=== PATIENT | female | born 1985 | race Caucasian/White ===

== ENCOUNTER 2017-10-16 12:50 | Emergency (ER) | payer OTHER ==
[2017-10-16] MEDS: IBUPROFEN 600 MG TAB PO (15:51)
[2017-10-16] MEDS: ONDANSETRON (ODT) 4 MG TAB ODT (15:51)
[2017-10-16] MEDS: ACETAMINOPHEN 500 MG TAB PO (15:51)
== END 2017-10-16 16:32 | disposition home or self-care (01) ==
LOC: FTE 12:50
DX: R50.9 Fever, unspecified (principal); R05 Cough; J02.9 Acute pharyngitis, unspecified; R11.10 Vomiting, unspecified
CPT/HCPCS: 99284; Z7502

== ENCOUNTER 2018-09-12 14:02 | Emergency (ER) | payer SELFPAY, OTHER | END 2018-09-12 15:11 | disposition home or self-care (01) | LOC: FTE 14:02 | DX: J06.9 Acute upper respiratory infection, unspecified (principal) | CPT/HCPCS: 99283 ==

== ENCOUNTER 2019-02-25 21:55 | Emergency (ER) | payer OTHER, MEDICAID ==
[2019-02-26] MEDS: KETOROLAC 30 MG INJ IM (00:16)
== END 2019-02-26 00:54 | disposition home or self-care (01) ==
LOC: FTE 02-26 00:54
DX: S00.83XA Contusion of other part of head, initial encounter (principal); Y04.0XXA Assault by unarmed brawl or fight, initial encounter
CPT/HCPCS: 81025; 96372; 99284-25